=== PATIENT | male | born 1995 | race Caucasian/White ===

== ENCOUNTER 2022-03-28 15:55 | Emergency (ER) | payer MEDICAID ==
[~2022-03-28] VITALS: Ht 185.4 cm; Wt 93.0 kg
[2022-03-28 16:24] VITALS: BP 121/73
--- NOTE | 2022-03-28 16:31 | NUR ---
PT AMBULATED TO BED 11 WITH STEADY GAIT
--- NOTE | 2022-03-28 16:41 | NUR ---
27 y/o male, c/o sharp pain on left side of his neck radiates to back for 4 days. denies fall or injury to area. PT STATED 5 DAYS AGO FELT SLIGHT PAIN ON THE L SIDE OF HIS NECK. NEXT MORNING WOKE UP WITH SEVERE, SHARP PAIN 10/10. THOUGHT THE PAIN WOULD GO AWAY WITH TIME BUT DID NOT. TOLD HIM TO GO THE THE ER. PT STATED HAS A HISTORY OF LOWER BACK PAIN. PT SITTING IN BED. pmh: denies nka med: cyclobenzaprine (no relief)
--- NOTE | 2022-03-28 16:53 | NUR ---
[facility] AT BEDSIDE
[2022-03-28] MEDS ORDERED: KETOROLAC 30 MG/ML VIAL IM ONE (16:55)
[2022-03-28] MEDS ORDERED: diazePAM 5 MG TAB PO ONE (16:55)
[2022-03-28] MEDS ORDERED: LIDO5TDM59 TP (17:48)
[2022-03-28] MEDS ORDERED: DICL75EC11 PO (17:48)
[2022-03-28 17:56] VITALS: BP 109/63
--- NOTE | 2022-03-28 17:57 | NUR ---
Patient discharged with v/s stable. Written and verbal after care instructions ABOUT MUSCULOSKELETAL PAIN given and explained. Patient alert, oriented and verbalized understanding of instructions. Ambulatory with steady gait. All questions addressed prior to discharge. ID band removed. Patient advised to follow up with PMD. Rx of DICLOFENAC SODIUM, LIDODERM given. Patient educated on indication of medication including possible reaction and side effects. Opportunity to ask questions provided and answered.
== END 2022-03-28 17:56 | disposition home or self-care (01) ==
LOC: MED 15:55
DX: M54.2 Cervicalgia (principal); M25.512 Pain in left shoulder; Z79.899 Other long term (current) drug therapy; Z79.1 Long term (current) use of non-steroidal anti-inflammatories (NSAID)
CPT/HCPCS: 96372; 99283; J1885